=== PATIENT | female | born 1975 | race Caucasian/White ===

== ENCOUNTER → 2017-11-14 | Emergency (ER) | payer OTHER ==
[~2017-11-14] VITALS: Ht 157.5 cm; Wt 97.5 kg
[~2017-11-14] MED LIST: BENADRYL50 MG PO; FLOVENT 110MCG7.9 GM IH; INTESTINEX1 CAP PO; MEDROL8 MG PO; METOPROLOL TART50 MG; NAPROXEN500 MG PO; ORPH100T PO; SINGULAIR10 MG PO; TOBRADEX EYE DR10 ML OP
== END | disposition left against medical advice (07) ==
LOC: ER 18:36
DX: R51 Headache (principal)

== ENCOUNTER → 2017-11-15 | Emergency (ER) | payer OTHER | END | disposition left against medical advice (07) | LOC: ER 11:30 | DX: Z53.20 Procedure and treatment not carried out because of patient's decision for unspecified reasons (principal) ==

== ENCOUNTER → 2017-12-31 | Emergency (ER) | payer OTHER ==
[~2017-12-31] VITALS: Ht 160 cm; Wt 97.5 kg
== END | disposition left against medical advice (07) ==
LOC: ER 00:45
DX: Z53.20 Procedure and treatment not carried out because of patient's decision for unspecified reasons (principal)

== ENCOUNTER 2018-05-05 09:56 | Emergency (ER) | payer OTHER ==
[~2018-05-05] VITALS: Ht 157.5 cm; Wt 97.5 kg
== END 2018-05-05 11:45 | disposition home or self-care (01) ==
LOC: ER 09:56
DX: M94.0 Chondrocostal junction syndrome [Tietze] (principal)

== ENCOUNTER 2018-07-11 10:29 | Emergency (ER) | payer OTHER ==
[~2018-07-11] VITALS: Ht 157.5 cm; Wt 97.5 kg
[2018-07-11] MEDS ORDERED: LOSARTAN POTASS50 MG PO (11:05)
== END 2018-07-11 15:26 | disposition home or self-care (01) ==
LOC: ER 10:29
DX: K29.00 Acute gastritis without bleeding (principal)

== ENCOUNTER 2018-07-26 08:36 | Emergency (ER) | payer OTHER ==
[~2018-07-26] VITALS: Ht 157.5 cm; Wt 97.5 kg
[~2018-07-26 08:36] MED LIST changes: +LOSARTAN POTASS50 MG PO
== END 2018-07-26 10:51 | disposition home or self-care (01) ==
LOC: ER 08:36
DX: S80.01XA Contusion of right knee, initial encounter (principal); S90.01XA Contusion of right ankle, initial encounter; W06.XXXA Fall from bed, initial encounter; Y93.89 Activity, other specified; Y92.013 Bedroom of single-family (private) house as the place of occurrence of the external cause; Y99.8 Other external cause status

== ENCOUNTER 2018-09-14 07:40 | Emergency (ER) | payer OTHER ==
[~2018-09-14] VITALS: Ht 157.5 cm; Wt 97.5 kg
== END 2018-09-14 10:22 | disposition left against medical advice (07) ==
LOC: ER 07:40
DX: B34.9 Viral infection, unspecified (principal)

== ENCOUNTER → 2018-09-15 | Emergency (ER) | payer OTHER ==
[~2018-09-15] VITALS: Ht 157.5 cm; Wt 108.9 kg
== END | disposition home or self-care (01) ==
LOC: ER 14:52
DX: R53.81 Other malaise (principal)

== ENCOUNTER 2019-01-06 09:43 | Emergency (ER) | payer OTHER ==
[~2019-01-06] VITALS: Ht 157.5 cm; Wt 97.5 kg
[2019-01-06] MEDS ORDERED: BUTALB-ACETAMI1 EACH PO (12:27)
== END 2019-01-06 14:38 | disposition home or self-care (01) ==
LOC: ER 09:43
DX: G43.809 Other migraine, not intractable, without status migrainosus (principal)

== ENCOUNTER 2019-01-13 08:24 | Emergency (ER) | payer OTHER ==
[~2019-01-13] VITALS: Ht 157.5 cm; Wt 97.5 kg
[~2019-01-13 08:24] MED LIST changes: +BUTALB-ACETAMI1 EACH PO
== END 2019-01-13 14:12 | disposition home or self-care (01) ==
LOC: ER 08:24
DX: I16.0 Hypertensive urgency (principal); I10 Essential (primary) hypertension

== ENCOUNTER → 2019-03-26 | Emergency (ER) | payer OTHER ==
[~2019-03-26] VITALS: Ht 157.5 cm; Wt 95.3 kg
== END | disposition left against medical advice (07) ==
LOC: ER 12:54
DX: R07.89 Other chest pain (principal)

== ENCOUNTER 2019-04-15 23:54 | Emergency (ER) | payer OTHER ==
[~2019-04-15] VITALS: Ht 152.4 cm; Wt 77.1 kg
== END 2019-04-16 04:12 | disposition home or self-care (01) ==
LOC: ER 23:54
DX: R07.89 Other chest pain (principal); F41.8 Other specified anxiety disorders

== ENCOUNTER 2019-06-12 17:07 | Emergency (ER) | payer OTHER ==
[~2019-06-12] VITALS: Ht 167.6 cm; Wt 106.6 kg
== END 2019-06-12 19:31 | disposition home or self-care (01) ==
LOC: ER 17:07
DX: R07.89 Other chest pain (principal)

== ENCOUNTER 2019-06-26 19:44 | Emergency (ER) | payer OTHER ==
[~2019-06-26] VITALS: Ht 160 cm; Wt 90.7 kg
== END 2019-06-26 21:24 | disposition home or self-care (01) ==
LOC: ER 19:44
DX: K29.60 Other gastritis without bleeding (principal)

== ENCOUNTER 2021-03-01 20:15 | Emergency (ER) | payer OTHER ==
[~2021-03-01] VITALS: Ht 157.5 cm; Wt 104.3 kg
== END 2021-03-01 22:49 | disposition home or self-care (01) ==
LOC: ER 20:15
DX: R10.13 Epigastric pain (principal)

== ENCOUNTER 2023-04-15 13:58 | Emergency (ER) | payer OTHER ==
[~2023-04-15] VITALS: Ht 157.5 cm; Wt 97.5 kg
== END 2023-04-15 15:43 | disposition home or self-care (01) ==
LOC: ER 13:58
DX: R07.9 Chest pain, unspecified (principal); Z91.041 Radiographic dye allergy status; Z91.013 Allergy to seafood; Z88.6 Allergy status to analgesic agent; I10 Essential (primary) hypertension